=== PATIENT | female | born 1975 | race Hispanic/Latino ===

== ENCOUNTER 2017-06-22 16:31 | Emergency (ER) | payer OTHER ==
[2017-06-22 16:38] VITALS: BP 129/81; PULSE 108; RESP 16; TEMP 98; O2SAT 100
[2017-06-22] MEDS ORDERED: Sodium Chloride 0.9% 1,000 ML IV STA (17:05)
[2017-06-22 17:50] LABS: BASO # 0.1 K/uL (0.0-0.2); BASO % 0.8 % (0.0-2.0); EOS # 0.1 K/uL (0.0-0.7); EOS % 1.9 % (0.0-4.0); HEMATOCRIT 38.5 % (34.0-47.0); LYMPH # 1.8 K/uL (1.0-4.3); LYMPH % 26.4 % (20.0-40.0); MEAN CELL VOLUME 88.9 fl (81.0-99.0); MEAN CORPUSCULAR HGB CONC 34.8 g/dL (33.0-37.0); MEAN PLATELET VOLUME 7.8 fl (7.2-11.7); MONO # 0.6 K/uL (0.0-0.8); MONO % 8.1 % (0.0-10.0); NEUT # 4.4 K/uL (1.8-7.0); NEUT % 62.8 % (50.0-75.0); NRBC % 0.1 % (0.0-0.0); RED CELL DISTRIBUTION WIDTH 12.7 % (11.5-14.5)
[2017-06-22 17:59] LABS: VENOUS BLOOD GAS BASE EXCESS 0.3 mmol/L (0.0-2.0); VENOUS BLOOD GAS PCO2 38 mmHg (40-60); VENOUS BLOOD PH 7.42 (7.32-7.43)
[2017-06-22 17:59] LABS: ALB/GLOB RATIO 1.4 (1.0-2.1); ALKALINE PHOSPHATASE 49 U/L (38-126); ALT/SGPT 29 U/L (9-52); AST/SGOT 19 U/L (14-36); BILIRUBIN,TOTAL 0.8 mg/dl (0.2-1.3); BLOOD UREA NITROGEN 12 mg/dl (7-17); CALCIUM 8.8 mg/dL (8.4-10.2); CARBON DIOXIDE 25 mmol/L (22-30); CHLORIDE 106 mmol/L (98-107); GFR AFRICAN-AMERICAN > 60; GLUCOSE,RANDOM 101 mg/dL (65-105); POTASSIUM 3.8 MMOL/L (3.6-5.0); SODIUM 141 mmol/l (132-148); TOTAL PROTEIN 6.7 G/DL (6.3-8.2)
--- NOTE | 2017-06-22 18:27 | ED PDOC ---
HPI: Abdomen Time Seen by Provider: 06/22/17 16:39 Chief Complaint (Nursing): Flu-like Symptoms Chief Complaint (Provider): Abdominal Cramping and Diarrhea History Per: Patient History/Exam Limitations: no limitations Onset/Duration Of Symptoms: Days Outside of [place] travel?: Yes Other Location:: [facility] Current Symptoms Are (Timing): Still Present Quality Of Discomfort: Cramping Associated Symptoms: Nausea, Diarrhea (loose, non bloody). denies: Vomiting Exacerbating Factors: None Alleviating Factors: None Additional Complaint(s): Savanah Burch, a 42 year old female, presents to the ED complaining of diffuse abdominal cramping. As per patient she recently returned from a 2 week trip to [facility], where she visited [facility] and [facility]. She reports that 3 days ago prior to leaving she developed loose non bloody diarrhea associated with nausea but no vomiting. She further states that she has been taking tylenol and motrin around the clock as she had a tmax of 100 but she did not take any antipyretics today. Denies vomiting, melena, hematochezia BRBPR and prior abdominal surgeries. Abnormal Vaginal Bleeding: No Past Medical History Reviewed: Historical Data, Nursing Documentation, Vital Signs Vital Signs: Last Vital Signs Temp 98.0 F 06/22/17 16:37 Pulse 108 H 06/22/17 16:37 Resp 16 06/22/17 16:37 BP 129/81 06/22/17 16:37 Pulse Ox 100 06/22/17 18:33 - Medical History PMH: No Chronic Diseases - Surgical History Surgical History: No Surg Hx - Family History Family History: States: Unknown Family Hx - Social History Current smoker - smoking cessation education provided: No Ex-Smoker (has not smoked in the last 12 months): No Alcohol: None Drugs: Denies - Home Medications Home Medications: Ambulatory Orders Medication Instructions Recorded Dicyclomine [Bentyl] 20 mg PO Q8 PRN #30 tab 06/22/17 Ondansetron ODT [Zofran ODT] 4 mg PO TID #30 odt 06/22/17 - Allergies Allergies/Adverse Reactions: Allergies Allergy/AdvReac Type Severity Reaction Status Date / Time No Known Allergies Allergy Verified 06/22/17 16:36 Review of Systems ROS Statement: Except As Marked, All Systems Reviewed And Found Negative Constitutional: Positive for: Fever Gastrointestinal: Positive for: Nausea, Abdominal Pain (abdominal cramping), Diarrhea (loose and non bloody). Negative for: Vomiting, Hematochezia Physical Exam - Reviewed Nursing Documentation Reviewed: Yes Vital Signs Reviewed: Yes - Physical Exam Appears: Positive for: Non-toxic, No Acute Distress Head Exam: Positive for: ATRAUMATIC, NORMAL INSPECTION, NORMOCEPHALIC Skin: Positive for: Normal Color, Warm, Dry. Negative for: Diaphoresis Eye Exam: Positive for: Normal appearance, EOMI, PERRL. Negative for: Nystagmus ENT: Positive for: Normal ENT Inspection. Negative for: Nasal Congestion, Tonsillar Exudate, Tonsillar Swelling Neck: Positive for: Normal, Painless ROM, Supple Cardiovascular/Chest: Positive for: Regular Rate, Rhythm, Chest Non Tender. Negative for: Tachycardia Respiratory: Positive for: Normal Breath Sounds. Negative for: Rales, Rhonchi, Wheezing, Respiratory Distress Gastrointestinal/Abdominal: Positive for: Normal Exam, Bowel Sounds, Soft. Negative for: Tenderness, Mass, Guarding, Rebound Back: Positive for: Normal Inspection. Negative for: L CVA Tenderness, R CVA Tenderness Extremity: Positive for: Normal ROM. Negative for: Tenderness, Deformity, Swelling Lymphatic: Positive for: Normal Exam. Negative for: Adenopathy Neurologic/Psych: Positive for: Alert, Oriented, Gait. Negative for: Motor/ Sensory Deficits - Laboratory Results Result Diagrams: 06/22/17 17:43 06/22/17 17:43 - ECG O2 Sat by Pulse Oximetry: 100 (RA) Pulse Ox Interpretation: Normal - Progress Re-evaluation Time: 20:15 (Reports feeling much better. Tolerating PO fluids in ED. ) Condition: Re-examined, Improved Medical Decision Making Medical Decision Makin Initial impression 42 y/o female presenting with abdominal cramping Initial Plan: * VBG Shock Panel * CMP * Upreg * CBC * NS 1000 ml IV 1000mls/hr * Zofran 4mg IVP * Blood Culture * OVA AND PARASITE * Stool Culture * Urinalysis * Reevaluation Scribe Attestation Documented by Phyllis Darling acting as a scribe for Alfred Bocanegra PA-C. Provider Attestation All medical record entries made by the Scribe were at my direction and personally dictated by me. I have reviewed the chart and agree that the record accurately reflects my personal performance of the history, physical exam, medical decision making, and the department course for this patient. I have also personally directed, reviewed, and agree with the discharge instructions and disposition. Disposition - Clinical Impression Clinical Impression: Gastroenteritis - Patient ED Disposition Is Patient to be Admitted: No - Disposition Referrals: [facility] [Outside] Disposition: Routine/Home Disposition Time: 20:18 Condition: IMPROVED Prescriptions: Dicyclomine [Bentyl] 20 mg PO Q8 PRN #30 tab PRN Reason: abdominal pain Ondansetron ODT [Zofran ODT] 4 mg PO TID #30 odt Forms: [facility] Connor (Tunisian)
[2017-06-22 18:33] LABS: RBC URINE < 1 /hpf (0-3); URINE BILIRUBIN NEGATIVE (NEGATIVE); URINE BLOOD NEGATIVE (NEGATIVE); URINE COLOR COLORLESS (YELLOW); URINE GLUCOSE (UA) NEG (Normal); URINE KETONE NEGATIVE (NEGATIVE); URINE LEUKOCYTE ESTERASE NEG Leu/uL (Negative); URINE PROTEIN NEGATIVE (NEGATIVE); URINE UROBILINOGEN 0.2-1.0 mg/dL (0.2-1.0); WBC URINE < 1 /hpf (0-5)
--- NOTE | 2017-06-22 21:02 | ED PDOC ---
- Laboratory Results Result Diagrams: 06/22/17 17:43 06/22/17 17:43 - ECG O2 Sat by Pulse Oximetry: 100 (RA) Medical Decision Making Medical Decision Making: Case endorsed to proposal manager writer from RAD[facility] Bocanegra at 1999 pending stool sample. On re-eval, pt unable to provide sample. offers no complaints. asking ot go home Disposition - Clinical Impression Clinical Impression: Gastroenteritis - POA Present On Arrival: None - Disposition Referrals: [facility] [Outside] Disposition: Routine/Home Disposition Time: 03:00 Condition: GOOD Prescriptions: Dicyclomine [Bentyl] 20 mg PO Q8 PRN #30 tab PRN Reason: abdominal pain Ondansetron ODT [Zofran ODT] 4 mg PO TID #30 odt Instructions: Gastroenteritis (ED) Forms: [facility] Connor (Telugu)
== END 2017-06-22 20:50 | disposition home or self-care (01) ==
LOC: H.ER 16:31
DX: K52.9 Noninfective gastroenteritis and colitis, unspecified (principal)
CPT/HCPCS: 80053; 81003; 82803; 85025; 87040; 96374; 99285; J2405; J7040